=== PATIENT | female | born 1940 | race Caucasian/White ===

== ENCOUNTER → 2016-06-24 | Day surgery (SDC) | payer MEDICARE, OTHER ==
[~2016-06-24] MED LIST: ALBUTEROL MININEB NEB; ALBUTEROL17 G1 IH; ALBUTEROL17 GM INH; AMIODARONE PO; ANTIVERT PO; CALCIUM 500 +1 EAC2 PO; CERTAGEN PO; COMBIVENT RESPIM4 GM INH; COMBIVENT14.7 GM INH; COUMADIN2.5 MG PO; COUMADIN5 MG PO; FUROSEMIDE40 MG PO; HCTZ PO; HYDROCODON-ACE1 EAC7 PO; LEVAQUIN PO; LEVOTHYROXINE75 MCG PO; LOTREL 5/40 MG1 CAP PO; LOTREL PO; MULTIPLE VITAMI1 T11 PO; NEXIUM PO; NORCO 10-325 TA1 TAB PO; PACERONE PO; PERCOCET5/325 PO; PREDNISONE PO; PREDNISONE10 MG PO; PROAIR HFA8.5 GM INH; PROTONIX PO; ROBAXIN500 MG PO; SYMBICORT INH; VITAMIN B 12 DAILY; VITAMIN D400 UNI1 PO; XARELTO20 MG PO
--- NOTE | ~2016-06-24 | OR ---
Unit #: [id number] #: [id number] Patient: JOHN VASQUES [id number] [address] [address] [id number] O MR#: [id number] NAME: JOHN VASQUES. ROOM: Date of Procedure: 06/24/2016 Admission Date: 06/24/2016 Surgeon: Stef Gupta M.D. : 1940 Attending Physician: Stef Gupta M.D. Primary Care Physician: Jesús Meyer D.O. [facility] OPERATIVE NOTE PROCEDURE PERFORMED Lumbar epidural steroid injection under x-ray guided needle placement. PREOPERATIVE DIAGNOSES 1. Acute lumbar radiculitis. 2. Spinal stenosis, lumbosacral spine. 3. Degenerative joint disease, lumbosacral spine. 4. Degenerative disk disease, lumbosacral spine. 5. Facet arthralgia, lumbosacral spine. INDICATIONS FOR PROCEDURE The patient presents today with a longstanding history of chronic lumbar radicular pain secondary to her underlying degenerative processes. She has been fairly well managed medically with conservative treatment, however, over the course of the past few weeks to months the patient has experienced a crescendo pattern increase in her pain, which is no longer responding to her ongoing and continuous conservative measures. After discussing risks and benefits of proceeding today with an L4-L5 lumbar approach epidural steroid injection and return on Wednesday07/20/2016 for a potential dual needle technique injection, the patient agreed this would be the appropriate course of action. DESCRIPTION OF PROCEDURE She was then taken to the operating room, where she was prepped and draped in a sterile manner. Standard monitors were applied. She refused all forms of sedation and lumbar epidural space was accessed at the L4-L5 level using loss of resistance technique and x-ray guidance. Needle placement was confirmed with the injection of 2 mL of Omnipaque. Total x-ray time for this L4-L5 needle placement was 4 seconds. Following successful needle placement at the L4-L5 level, the patient received an injectate containing 4 mL of normal saline and 80 mg of methylprednisolone. She tolerated this procedure well. She was discharged home with followup instructions, which included above. Dictated by... Stef Gupta M.D. TIMO/seth TD: 06/25/2016 03:07 JOB #: [id number] CC: Stan Gary M.D. Unit #: [id number] #: [id number] Patient: JOHN VASQUES [facility] OPERATIVE NOTE X Manjit Gupta MD PROCEDURE OPERATIVE NOTE
== END | disposition home or self-care (01) ==
LOC: CCSC 10:43
DX: G89.29 Other chronic pain (principal); M51.17 Intervertebral disc disorders with radiculopathy, lumbosacral region; M48.07 Spinal stenosis, lumbosacral region; J43.9 Emphysema, unspecified; M19.90 Unspecified osteoarthritis, unspecified site; Z88.0 Allergy status to penicillin; Z96.652 Presence of left artificial knee joint; Z98.84 Bariatric surgery status; Z98.890 Other specified postprocedural states
CPT/HCPCS: J1040; J2250

== ENCOUNTER → 2016-07-20 | Day surgery (SDC) | payer MEDICARE, OTHER | END | disposition home or self-care (01) | LOC: CCSC 08:17 | DX: M54.5 Low back pain (principal); Z53.8 Procedure and treatment not carried out for other reasons | CPT/HCPCS: J1040; J2250 ==

== ENCOUNTER → 2016-07-22 | Day surgery (SDC) | payer MEDICARE, OTHER ==
--- NOTE | ~2016-07-22 | OR ---
Unit #: [id number] #: [id number] Patient: JOHN VASQUES [id number] [address] [address] [id number] O MR#: [id number] NAME: JOHN VASQUES. ROOM: Date of Procedure: 07/22/2016 Admission Date: 07/22/2016 Surgeon: Stef Gupta M.D. : 1940 Attending Physician: Stef Gupta M.D. Referring Physician: Stef Gupta M.D. Primary Care Physician: Jesús Meyer D.O. [facility]ENTER OPERATIVE NOTE PROCEDURE PERFORMED Lumbar epidural steroid injection under x-ray guided needle placement with provider administered conscious sedation. PREOPERATIVE DIAGNOSES 1. Acute lumbar radiculitis. 2. Spinal stenosis, lumbosacral spine. 3. Compression fracture, L3-L4. 4. Degenerative joint disease, lumbosacral spine. 5. Degenerative disk disease, lumbosacral spine. INDICATIONS FOR PROCEDURE The patient presents today status post one previous lumbar approach epidural steroid injection for which she got minimal relief and while relief, she did get was incomplete as well as she did have return of symptoms. She is in possession of MRI report, which shows a stable compression fracture at L3-L4. We discussed repeating today's epidural steroid injection utilizing a dual needle technique as well as referral to Dr. Hernan Meza for evaluation of surgical disease, the patient agreed this would be the appropriate course of action. DESCRIPTION OF PROCEDURE She was then taken to the operating room, where she was prepped and draped in sterile manner. Standard monitors were applied. She was sedated with 1 mg of IV Versed initially and required additional 1 mg of IV Versed throughout the duration of procedure. Lumbar epidural space accessed at the L5-S1 and L3-L4 levels using loss of resistance technique and x-ray guidance. Needle placement was confirmed at each level with the injection of 2 mL of Omnipaque. There was good superior and inferior dye flow at both injectate levels. Total x-ray time for this dual needle placement was 7 seconds. Following successful needle placement confirmation, the patient received 4 mL normal saline and 40 mg of methylprednisolone at each level for a total injectate volume today of 8 mL normal saline and 80 mg of methylprednisolone. She tolerated this procedure well. She was discharged home with followup instructions, which include an offer to return to this clinic as early as 11/04/2016 if we could be of further service to her. She was instructed if she was asymptomatic at that time to simply not keep that appointment and to follow up with us or primary and/or referring provider at such point in future if we could be of further service to her. She is further instructed if these injections today did not provide any relief to simply not keep that appointment and to inform her primary and/or referring provider such that she could be referred for more advanced pain management procedures. She is also Unit #: [id number] #: [id number] Patient: JOHN VASQUES referred to Dr. Hernan Meza for potential treatment of any surgical disease which may exist. Dictated by... Greg Castro/seth TD: 07/23/2016 02:17 JOB #: [id number] CC: Stan Gary M.D. SUR[facility] CENTER OPERATIVE NOTE Page 1 of 1 X Manjit Gupta MD X PROCEDURE OPERATIVE NOTE
== END | disposition home or self-care (01) ==
LOC: CCSC 10:03
DX: M51.17 Intervertebral disc disorders with radiculopathy, lumbosacral region (principal); M48.07 Spinal stenosis, lumbosacral region; M48.56XA Collapsed vertebra, not elsewhere classified, lumbar region, initial encounter for fracture; J43.9 Emphysema, unspecified; M19.90 Unspecified osteoarthritis, unspecified site; Z88.0 Allergy status to penicillin; Z96.652 Presence of left artificial knee joint; Z98.84 Bariatric surgery status; Z98.890 Other specified postprocedural states
CPT/HCPCS: J1040; J2250

== ENCOUNTER → 2016-07-28 | Outpatient (CLI) | payer MEDICARE, OTHER | END | disposition home or self-care (01) | LOC: CSSDAY 12:39 | DX: M81.0 Age-related osteoporosis without current pathological fracture (principal); M48.50XS Collapsed vertebra, not elsewhere classified, site unspecified, sequela of fracture; Z79.899 Other long term (current) drug therapy | CPT/HCPCS: 36415; 82310; 96372; J0897 ==

== ENCOUNTER → 2016-08-13 | Outpatient (CLI) | payer MEDICARE, OTHER ==
--- NOTE | ~2016-08-13 | BD1 ---
[facility] A Service of [facility] RADIOLOGY TEXT RESULTS PATIENT: JOHN VASQUES LOCATION: [facility] : [birth year] UNIT #: [id number] AGE: [address]: Shruthi Huff MD SEX: F ORDER DR: [id number] [facility] [address] [facility]. [place], [place] [address] [id number] O MR#: [id number] Acc #: [id number] NAME: JOHN VASQUES. : 1940 SEX: F STUDY DATE/TIME: 08/13/2016 12:50 UNIT: [facility] ROOM: STUDY DESCRIPTION: BD Dexa Bone Dens 1+ Site Attending Physician: Shruthi Huff M.D. Referring Physician: Shruthi Huff M.D. Ordering Physician: Shruthi Huff M.D. Primary Care Physician: Shruthi Huff M.D. MEDICAL IMAGING REPORT This report is preliminary unless electronic signature is present EXAM DXA scan, 08/13/2016. HISTORY 76-year postmenopausal female for osteoporosis screening. COMPARISON None FINDINGS The lumbar spine cannot be assessed, due to obscuration by overlying laparoscopic gastric band device. Distal third forearm bone mineral density is 0.562 g/cm2, with T-score -2.1 and Z-score 0.7, corresponding to the range of osteopenia. Left femoral neck bone mineral density is 0.536 g/cm2, with T-score -2.8 and Z-score -0.7, corresponding to the range of osteoporosis. Nonconventional measurement total bone mineral density of the total forearm corresponds to the range of osteoporosis, T-score -2.7. IMPRESSION 1. 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 This stratifies the patient at increased risk for fracture. Appropriate medical therapy is advised. 2. Distal third forearm bone mineral density corresponds to the range of osteopenia. Dictated by... Gabby Galarza M.D. [facility] A Service of [facility] RADIOLOGY TEXT RESULTS PATIENT: JOHN VASQUES LOCATION: [facility] : 40 UNIT #: [id number] AGE: [address]: Shruthi Huff MD SEX: F ORDER DR: THIS IS AN ELECTRONICALLY VERIFIED REPORT Gabby Galarza M.D. at 08/19/2016 8:32 AM Nikole TD: 08/13/2016 17:51 JOB #: [id number] MEDICAL IMAGING REPORT Page 1 of 1 COPY
== END | disposition home or self-care (01) ==
LOC: CWCC 12:29
DX: M81.0 Age-related osteoporosis without current pathological fracture (principal); M85.839 Other specified disorders of bone density and structure, unspecified forearm
CPT/HCPCS: 77080